=== PATIENT | male | born 1955 ===

== ENCOUNTER 2021-11-26 20:51 | Emergency (ER) | payer OTHER, SELFPAY ==
[2021-11-26] VITALS (14 sets, daily range): BP systolic 102–196; BP diastolic 53–100; PULSE 73–90; RESP 20; TEMP 36.8; O2SAT 94–96
--- NOTE | 2021-11-26 21:00 | DI.CT_ITS ---
Exam(s) CT HEAD CERVICAL SPINE WO EXAM: CT HEAD CERVICAL SPINE WO CLINICAL HISTORY: fall, [place] on aspirin. TECHNIQUE: Imaging Protocol: Axial computed tomography images with coronal and sagittal reformatted images were created and reviewed COMPARISON: No exams were available for comparison FINDINGS: CT Head: Ventricles and Extra axial spaces: Normal in size and morphology for the patient's age. Hemorrhage: None. Cerebral parenchyma: No acute territorial infarct. Midline shift: None. Brainstem/Cerebellum: Normal. Calvarium: Normal. Visualized Paranasal sinuses/Mastoids: Clear. Soft Tissues: There is soft tissue swelling of the scalp overlying the posterior right parietal bone. CT Cervical Spine: Bones: No acute fracture or subluxation. Degenerative changes are seen in the cervical spine. There is incomplete fusion of the posterior arch of C1 which is a normal congenital variant. Soft Tissues: Unremarkable. Lung Apices: Clear. IMPRESSION: 1. No acute intracranial process. 2. Right parietal scalp hematoma. 3. No acute fracture or subluxation in the cervical spine. RADIATION DOSE DELIVERED: 1,505.52mGy.cm Total DLP DATA REPOSITORY: All CT scans at this facility are submitted to the National Radiology Data Registry (NRDR) Dose Index Registry (DIR) with the [employer] ([employer]). RADIATION OPTIMIZATION: All CT scans at this facility use at least one of these dose optimization te chniques: automated exposure control; mA and/or kV adjustment per patient size (includes targeted exa ms where dose is matched to clinical indication); or iterative reconstruction.
--- NOTE | 2021-11-26 22:58 | DI.VRAD_ITS ---
PROCEDURE INFORMATION: Exam: CT Head Without Contrast Exam date and time: 11/26/2021 9:11 PM Age: 65 years old Clinical indication: Injury or trauma; Fall; Blunt trauma (contusions or hematomas); Without loss of consciousness TECHNIQUE: Imaging protocol: Computed tomography of the head without contrast. COMPARISON: No relevant prior studies available. FINDINGS: Brain: Normal. No hemorrhage. Unremarkable white matter. No mass effect. Extra-axial space: No evidence of subdural hemorrhage. Cerebral ventricles: No ventriculomegaly. Paranasal sinuses: Mild ethmoid mucosal thickening. Mild left maxillary mucosal thickening. No layering fluid. Mastoid air cells: Visualized mastoid air cells are well aerated. Vasculature: Moderate distal carotid artery calcifications. Bones/joints: Negative for skull fracture. Soft tissues: Moderate posterior right parietal scalp hematoma, 5 cm at the base and 8 mm thickness. IMPRESSION: 1. Negative for intracranial hemorrhage or other acute intracranial abnormality. 2. Moderate right parietal scalp hematoma. PROCEDURE INFORMATION: Exam: CT Cervical Spine Without Contrast Exam date and time: 11/26/2021 9:11 PM Age: 65 years old Clinical indication: Injury or trauma; Fall; Blunt trauma (contusions or hematomas); Without loss of consciousness TECHNIQUE: Imaging protocol: Computed tomography images of the cervical spine without contrast. COMPARISON: No relevant prior studies available. FINDINGS: Bones/joints: Negative for cervical spine fracture. Mild degenerative anterolisthesis C4 on C5 measures 3 mm. 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 Discs/Spinal canal/Neural foramina: Moderate multilevel degenerative disc disease. Severe multilevel facet arthropathy. Facet fusion noted at C3-C4 on the left. Lungs: Lung apices are normal. Vasculature: Moderate plaque noted at the carotid artery bifurcations, more severe on the left. Soft tissues: Unremarkable. IMPRESSION: Negative for cervical spine fracture. Dictated and Authenticated by: Dick Palafox MD. Ordering:DOREEN Manzano MD
--- NOTE | 2021-11-26 23:21 | W.ED.GENAD ---
Discharge Plan Disposition Patient Disposition: HOME Condition: Stable Discharge Details Clinical Impression: Laceration, Head injuries Primary Care Provider: Unknown,Unknown ED Provider: Natacha Weaver Home Meds and New Rx's Prescriptions: Continued amlodipine 5 mg Tablet 5 mg PO DAILY 0RF aspirin 81 mg Tablet 81 mg PO DAILY 0RF atorvastatin 40 mg Tablet 40 mg PO DAILY 0RF metoprolol succinate 50 mg Tablet Extended Release 24 Hr 50 mg PO DAILY 0RF lisinopril 40 mg Tablet 40 mg PO DAILY 0RF Discharge Instructions Instructions: Laceration (ED), Head Injury (ED) Additional Instructions: tylenol as needed for pain sutures removed in 7 days return with worsening headache, vomiting, fever, or with any new or worsening complaints Discharge Data Discharge Date/Time-TO BE ENTERED AT DEPARTURE: 11/26/21 23:24 Medical Decision Making Patient is ambulatory with steady gait, his CT does not show evidence of acute abnormality. Head and cervical spine Coagulation was achieved. Laceration Tablets removed in 7 days Not exhibiting any signs or symptoms of concussion Return precautions discussed and patient expressed understanding Medical Records Medical records reviewed: Yes I reviewed the patient's medical records. HPI General Date/Time Provider Initiated Documentation: 11/26/21 21:01. HPI Narrative: This 65-year-old male presents with laceration to head. Patient reportedly slipped on ice and did hit his head, denies loss of consciousness. He reports laceration required at time of incident. He states that his tetanus is up-to-date. Takes 81 mg of aspirin daily. Denies any neck pain. Related Data Home Medications Medication Instructions Recorded Confirmed amlodipine 5 mg tablet 5 mg PO DAILY 11/26/21 11/26/21 aspirin 81 mg tablet 81 mg PO DAILY 11/26/21 11/26/21 atorvastatin 40 mg tablet 40 mg PO DAILY 11/27/21 11/27/21 lisinopril 40 mg tablet 40 mg PO DAILY 11/27/21 11/27/21 metoprolol succinate 50 mg 50 mg PO DAILY 11/27/21 11/27/21 tablet,extended release 24 hr Allergies Allergy/AdvReac Type Severity Reaction Status Date / Time No Known Drug Allergies Allergy Unverified 11/26/21 21:05 General Stated Complaint: HeadInjury HELEN: 2 Review of Systems All systems reviewed & are unremarkable except as noted in HPI and below PFSH All Active Problems (Updated 11/26/21 @ 23:18 by DEMETRIO Mcintosh) Laceration (Acute) Head injuries (Acute) Social History Smoking/Tobacco Use Status: Never Smoking risk assessment performed?: Yes Alcohol Intake: current Alcohol Intake frequency: 0-2 drinks per day Alcohol type: beer and wine Drug use: Current Sobriety Substance use type: former substance user Do you feel safe at home: Yes Do you feel safe in your relationship?: Yes Exam Const General: cooperative, comfortable and no acute distress [facility] Head images: 1. Other: 2 inch occipital laceration Eyes Pupils: PERRL Neck Other: No midline tenderness Resp Effort & Inspection: normal respiratory effort Other: No visible sign of trauma Cardio Rate: regular rate Rhythm: regular rhythm GI Inspection: normal to inspection Other: Nontender abdominal exam Skin Other: Large laceration to the occipital region of scalp Neuro General: patient alert, patient oriented x3 and CN's II-XI intact bilaterally Cranial Nerves: PERRL Cognition: normal cognition Speech: speech normal Sensory Exam: no sensory deficits noted Other: Ambulatory with steady gait, GCS 15 Extrem Other: No visible sign of trauma Course Vital Signs Vital signs: Vital Signs Temperature 36.8 C 11/26/21 20:57 Pulse 90 11/26/21 20:57 Respiratory Rate 20 11/26/21 20:57 Blood Pressure 196/100 H 11/26/21 20:57 Pulse Oximetry 96 11/26/21 20:57 Temperature 36.8 C 11/26/21 20:57 Temperature Source Oral 11/26/21 20:57 Pulse 81 11/26/21 23:16 Respiratory Rate 20 11/26/21 20:57 Respiratory Effort Non-Labored 11/26/21 21:12 Respiratory Depth Normal 11/26/21 21:12 Respiratory Pattern Normal 11/26/21 21:12 Blood Pressure 102/86 11/26/21 23:16 Blood Pressure Mean 89 11/26/21 23:16 Blood Pressure Position Supine 11/26/21 20:57 Pulse Oximetry 96 11/26/21 23:10 Oxygen Delivery Method Room Air 11/26/21 20:57 Oxygen Flow Rate 0 11/26/21 20:57 Pain Level 0 11/26/21 21:12 Procedures Laceration Laceration 1: Site: scalp Side (If applicable): right Size (cm): 3 Description: linear Depth: simple, single layer Local Anesthetic: Lidocaine 1% and with Epi Pre-repair: wound explored Skin layer closed with: nylon Size (cm): 5-0 Number of sutures: 7 Subcutaneous layer closed with: vicryl Size: 4-0 Number of sutures: 4
== END 2021-11-26 23:24 | disposition home or self-care (01) ==
PROVIDERS: Emergency Provider Physician Assistant
DX: S01.01XA Laceration without foreign body of scalp, initial encounter (principal); W00.0XXA Fall on same level due to ice and snow, initial encounter; Z79.82 Long term (current) use of aspirin
CPT/HCPCS: 12002; 99284; 70450; 72125; 99283